=== PATIENT | female | born 1985 | race Caucasian/White ===

== ENCOUNTER → 2017-11-28 22:26 | Observation (INO) ==
[2017-11-28 21:48] LABS: Bilirubin,Urine Negative (Negative); Blood,Urine Negative (Negative); Clarity,Urine Clear (Clear); Color,Urine Yellow (Yellow); Glucose,Urine (UA) Normal (Normal); Ketones,Urine Negative (Negative); Leukocyte Esterase,Urine Negative (Negative); Nitrite,Urine Negative (Negative); Protein,Urine Negative (Neg-Trace); Specific Gravity,Urine 1.027 (1.010-1.025); Urobilinogen,Urine Normal (Normal)
[2017-11-28 21:57] LABS: Amphetamine Screen,Urine Negative ng/mL (Cutoff=1000); Barbiturate Screen,Urine Negative ng/mL (Cutoff=200); Benzodiazepines Screen,Urine Negative ng/mL (Cutoff=200); Cannabinoid Screen,Urine Negative ng/mL (Cutoff = 50); Cocaine Screen,Urine Negative ng/mL (Cutoff= 300); Opiate Screen,Urine Negative ng/mL (Cutoff=300); Phencyclidine Screen,Urine Negative ng/mL (Cutoff=25)
--- NOTE | 2017-11-28 22:25 | OB/GYN Progress Note ---
Date of Encounter: 11/28/17 Time of Encounter: 22:20 - Assessment and Plan (1) 32 weeks gestation of Current Visit: Yes Status: Acute Continue care labor precautions given Follow up with your OB within 7 days Discharge home (2) Dehydration during Current Visit: Yes Status: Acute Increase fluid intake Rest Subjective - Subjective Principal diagnosis: Dehydration in Interval history: Ms. Bateman is a 32-year-old at 32 weeks who presents with concerns for "low fluid." She states she was seen at an outside "fun" ultrasound place today and they told her that her fluid was "5" and that this was "bad". She then called [facility] where she was told to increase her water and be seen. She presents here because she Googled where she could go that could take care of her baby. She sees Dr. Madrid for PNC. She reports when she saw him yesterday he stated her belly measured big. She endorses good fm and denies ctx, lof, vb. Antepartum ROS: new complaints, movement normal, no loss of fluid, no vaginal bleeding, no contractions Objective - Vital Signs Vital Signs: Intake and Output 11/28/17 11/28/17 11/28/17 07:59 15:59 23:59 Other: Weight 75.115 kg Patient Weight 11/28/17 23:59 Weight 75.115 kg - Exam FHR: category 1 FHR comments: Baseline 140 Moderate variability Accelerations present 10x10 No decelerations FHR Category I No toco activity Auscultation: bilateral: normal Abdomen: Present: normal appearance, rigidity, soft, gravid Uterus: Present: normal, firm Comments: Fundal Height 30cm - Labs Labs: Abnormal lab results Ur Specific [place] 1.027 (1.010-1.025) H 11/28/17 21:35
== END | disposition home or self-care (01) ==
LOC: 1NENULAB
PROVIDERS: ADMIT Obstetrics & Gynecology; ATTEND Obstetrics & Gynecology